=== PATIENT | female | born 1955 | race Caucasian/White ===

== ENCOUNTER 2017-02-12 13:22 | Inpatient (IN) | payer OTHER ==
[~2017-02-12] VITALS: Ht 152.4 cm; Wt 52.2 kg
--- NOTE | 2017-02-12 13:42 | NUR ---
AAOX3, CAME TO ER WITH MULTIPLE COMPLAINTS; "I WANNA TALK ABOUT EVERYTHING GOING ON WITH ME, I HAVE SEIZURES, DIZZY, I WANT MY HEART CHECKED AND MORE" RESP IS EVEN AND UNLABORED WITH NAD NOTED. SKIN IS WARM AND NON DIAPHORETIC. AWAITING MD FOR EVAL.
[2017-02-12] MEDS ORDERED: IV NS 0.9% 1,000 ML BAG IV ONE (15:00)
[2017-02-12] MEDS ORDERED: ONDANSETRON HCL/PF 4 MG/2 ML VIAL IV ONE (15:00)
[2017-02-12] MEDS ORDERED: MORPHINE SULFATE INJ 2 MG/ML DISP.SYRIN IV ONE (15:00)
[2017-02-12] MEDS ORDERED: IV NS 0.9% 1,000 ML ONE (15:18)
[2017-02-12] MEDS ORDERED: IV SET PRIMARY 1 EA INFUS.SET MC ONE (15:18)
[2017-02-12 15:19] LABS: BASOPHILS % (AUTO) 0.8 % (0.0-2.0); EOSINOPHILS # (AUTO) 0.1 /CMM (0.0-0.7); EOSINOPHILS % (AUTO) 2.6 % (0.0-6.0); HEMATOCRIT 45 % (33-45); HEMOGLOBIN 14.9 g/dL (11.5-14.8); LYMPHOCYTES # (AUTO) 1.1 /CMM (0.8-4.8); LYMPHOCYTES % (AUTO) 19.7 % (20.0-44.0); MEAN CORPUSCULAR HEMOGLOBIN 28 PG (26.0-33.0); MEAN CORPUSCULAR HGB CONC 33 g/dl (31.0-36.0); MEAN CORPUSCULAR VOLUME 83 fL (82-100); MONOCYTES # (AUTO) 0.3 /CMM (0.1-1.30); MONOCYTES % (AUTO) 4.8 % (2.0-12.0); NEUTROPHILS % (AUTO) 72.1 % (43.0-81.0); PLATELET COUNT (AUTO) 321 /CMM (150-450); RDW COEFFICIENT OF VARIATION 13.8 (11.5-15.0); RED BLOOD CELL COUNT(AUTO) 5.38 MIL/uL (4.0-5.2); WHITE BLOOD COUNT (AUTO) 5.5 K/uL (4.3-11.0)
--- NOTE | 2017-02-12 15:19 | NUR ---
PT REFUSING CT BRAIN. PT STATES SHE IS CLAUSTROPHOBIC. SHE SAYS IF SHE CHANGES HER MIND SHE WILL LET US KNOW.
[2017-02-12 15:21] LABS: APPEARANCE,URINE Clear (CLEAR); BILIRUBIN,URINE Negative (NEGATIVE); BLOOD, URINE Negative Ery/uL (NEGATIVE); COLOR,URINE Yellow (YELLOW); KETONES,URINE Negative (NEGATIVE); LEUKOCYTE ESTERASE ,URINE Negative (NEGATIVE); NITRITE, URINE Negative (NEGATIVE); PH,URINE 7.5 (5.0-8.0); PROTEIN,URINE Negative (NEGATIVE); UGLUCOSE Negative (NEGATIVE); UROBILINOGEN,URINE 0.2 EU/dL (0.2)
--- NOTE | 2017-02-12 15:26 | NUR ---
PATIENT REFUSED MORPHINE AND CT SCAN, ER MADE AWARE.
[2017-02-12 15:31] LABS: CALCIUM, SERUM 9.5 mg/dL (8.5-10.1); CREATININE 0.9 mg/dL (0.6-1.3)
[2017-02-12 15:33] LABS: INR 0.95 (0.87-1.13); PROTHROMBIN TIME 9.9 SECS (9.5-12.7)
[2017-02-12 15:37] LABS: ALBUMIN 4.2 g/dL (3.4-5.0); BILIRUBIN,TOTAL 0.4 mg/dL (0.2-1.0); TOTAL PROTEIN, SERUM 8.2 g/dL (6.4-8.2)
--- NOTE | 2017-02-12 16:02 | NUR ---
PAGED DR YUN
--- NOTE | 2017-02-12 16:20 | NUR ---
DR FRANCO AT FOR EVAL.
[2017-02-12] MEDS ORDERED: LEVE250T2 PO (16:27)
[2017-02-12] MEDS ORDERED: LEVO125T PO (16:27)
[2017-02-12] MEDS ORDERED: ACET-73 PO (16:27)
[2017-02-12] MEDS ORDERED: OXCA600T5 PO (16:27)
[2017-02-12] MEDS ORDERED: PANT40TA2 PO (16:27)
[2017-02-12] MEDS ORDERED: ATOR20TA PO (16:27)
[2017-02-12] MEDS ORDERED: IV NS 0.9% 1,000 ML IV PRN (16:29)
[2017-02-12] MEDS ORDERED: MAG HYDROX/AL HYDROX/SIMETH 30 ML UDC PO PRN (16:30)
[2017-02-12] MEDS ORDERED: Z GUARD REMEDY 2 OZ OINT TP PRN (16:30)
[2017-02-12] MEDS ORDERED: ZOLPIDEM TARTRATE 5 MG TABLET PO PRN (16:30)
[2017-02-12] MEDS ORDERED: ACETAMINOPHEN 325 MG TABLET PO PRN (16:30)
[2017-02-12] MEDS ORDERED: ONDANSETRON HCL/PF 4 MG/2 ML VIAL IVP PRN (16:30)
[2017-02-12] MEDS ORDERED: MAGNESIUM HYDROXIDE 30 ML UDC PO PRN (16:30)
[2017-02-12] MEDS ORDERED: HYDROCODONE/APAP 5/325MG 1 EACH TABLET PO PRN (16:30)
--- NOTE | 2017-02-12 16:35 | NUR ---
REPORT GIVEN TO VIRGIL HARTLEY RN FOR ADRIANA TELE [phone]
[2017-02-12 17:00] VITALS: BP 137/82
[2017-02-12] MEDS ORDERED: ENOXAPARIN SODIUM 40 MG/0.4 ML DISP.SYRIN SQ SCH (17:00)
--- NOTE | 2017-02-12 17:00 | NUR ---
RN OPENING NOTES PT WAS BROUGHT UP TO UNIT FROM THE ER VIA GURNEY IN STABLE CONDITION. SHE WAS TRANSFERRED TO THE BED SAFELY. A/OX4. NO SOB OR DISTRESS NOTED. BREATHING IS EVEN AND UNLABORED. NO PAIN EXPRESSED AT THIS TIME. IV ON R HAND 20G INTACT AND PATENT. NO INFILTRATION OR REDNESS. WILL CARRY OUT ORDERS AND CONTINUE TO MONITOR.
--- NOTE | 2017-02-12 17:00 | NUR ---
PT. REFUSED LOVENOX BECAUSE SHE FEARED THE REACTION BEFORE HAVING HER DINNER. MEDICATION EDUCATION WAS REINFORCED
--- NOTE | 2017-02-12 18:35 | NUR ---
MS RN CLOSING NOTES PT. IN STABLE CONDITION. NO SOB OR SIGNS OF DISTRESS. ALL ORDERS AND PT NEEDS CARRIED OUT THROUGHOUT SHIFT. BED IN LOW LOCKED POSITION, DEYSI RAILS UP X2, CALL LIGHT WITHIN REACH. WILL ENDORSE TO TELECOMMUNICATIONS CLERK NURSE FOR ADRIANA.
--- NOTE | 2017-02-12 19:20 | NUR ---
TELE/FITNESS TEACHER; RECEIVED PT. IN BED SITTING POSITION. DENIES CHEST PAIN. BREATHING NON LABORED AND EVEN. HL ON RH INTACT AND PATENT. WITH TELEMETRY ON. PT INSTRUCTED ON NPO AFTER MIDNIGHT FOR STRESS TEST TOMORROW. BED ON LOWER POSITION AND LOCKED FOR SAFETY. SIDE RAILS UPPER PART OF BED UP FOR SAFETY. PT HAS BEEN INSTRUCTED TO CALL FOR HELP. CONTINUE TO MONITOR CALL LIGHT WITHIN REACH.
[2017-02-12] MEDS ORDERED: IV SET PRIMARY PUMP SET 1 EA INFUS.SET MC ONE (19:48)
[2017-02-12 20:00] VITALS: BP 102/67
[2017-02-12] MEDS: OXCARBAZEPINE 150 MG TABLET PO SCH (21:06)
[2017-02-12] MEDS ORDERED: ATORVASTATIN 10 MG TABLET PO SCH (22:00)
--- NOTE | 2017-02-12 23:25 | NUR ---
TELE/SOLE POLISHER; C/O HEADACHE AND PAIN RT THUMP AND ASKED FOR TYLENOL. SO TYLENOL 650 MG PO Q6 PRN GIVEN ORDERED. WILL MONITOR.
[2017-02-13] VITALS: BP 106/69
[2017-02-13 06:12] LABS: BASOPHILS % (AUTO) 0.7 % (0.0-2.0); EOSINOPHILS # (AUTO) 0.2 /CMM (0.0-0.7); EOSINOPHILS % (AUTO) 4.5 % (0.0-6.0); HEMATOCRIT 36 % (33-45); HEMOGLOBIN 11.9 g/dL (11.5-14.8); LYMPHOCYTES # (AUTO) 1.6 /CMM (0.8-4.8); LYMPHOCYTES % (AUTO) 34.9 % (20.0-44.0); MEAN CORPUSCULAR HEMOGLOBIN 28 PG (26.0-33.0); MEAN CORPUSCULAR HGB CONC 33 g/dl (31.0-36.0); MEAN CORPUSCULAR VOLUME 84 fL (82-100); MONOCYTES # (AUTO) 0.5 /CMM (0.1-1.30); MONOCYTES % (AUTO) 9.8 % (2.0-12.0); NEUTROPHILS # (AUTO) 2.3 /CMM (1.8-8.9); NEUTROPHILS % (AUTO) 50.1 % (43.0-81.0); PLATELET COUNT (AUTO) 281 /CMM (150-450); RDW COEFFICIENT OF VARIATION 14.3 (11.5-15.0); RED BLOOD CELL COUNT(AUTO) 4.26 MIL/uL (4.0-5.2); WHITE BLOOD COUNT (AUTO) 4.6 K/uL (4.3-11.0)
--- NOTE | 2017-02-13 06:30 | NUR ---
TELE/CREDIT UNION FIELD EXAMINER; PT. ON SB 50. SLEPT FAIRLY. DENIES CHEST PAIN. PT SAID SLIGHT NAUSEOUS OFFERED PRN PT REFUSED. REMAINED ON NPO AND PT MUCH AWARE OF IT. VOIDING, NO BM. CONTINUE TO MONITOR. CALL LIGHT WITHIN REACH. WILL ENDORSE TO THE DAY SHIFT NURSE FOR CONTINUITY OF CARE.
[2017-02-13 07:03] LABS: CALCIUM, SERUM 8.3 mg/dL (8.5-10.1); CREATININE 0.8 mg/dL (0.6-1.3); MAGNESIUM 1.7 mg/dL (1.8-2.4); PHOSPHORUS 3.9 mg/dL (2.5-4.9); POTASSIUM 3.7 mmol/L (3.5-5.1)
[2017-02-13] MEDS ORDERED: PANTOPRAZOLE 40 MG TABLET.DR PO SCH ×2 (07:30)
[2017-02-13] MEDS ORDERED: LEVOTHYROXINE SODIUM 125 MCG TABLET PO SCH (07:30)
--- NOTE | 2017-02-13 07:35 | NUR ---
CAFETERIA CLERK OPENING NOTES PT. IN STABLE CONDITION. NO SOB OR SIGNS OF DISTRESS. DENIES ANY CHEST PAIN. NPO STATUS MAINTAINED FOR NUCLEAR STRESS TEST. IV HL ON RIGHT HAND 20G PATENT AND INTACT. NO RDNESS OR INFILTRATION. WILL CONTINUE TO MONITOR
[2017-02-13 08:00] VITALS: BP 118/57
[2017-02-13 08:10] VITALS: BP 118/59
--- NOTE | 2017-02-13 08:12 | NUR ---
WOUND CARE CONSULT: PATIENT SEEN AND SKIN ASSESSMENT DONE. PATIENT ALERT, ORIENTED, AMBULATORY, INDEPENDENT WITH BED MOBILITY, NAOMI 19, CONTINENT. SEE TODAY' SKIN ASSESSMENT ALONG WITH RECOMMENDATIONS DISCUSSED WITH NURSING STAFF. IN AGREEMENT WITH PLAN OF CARE. Addendum: 02/13/17 at 0818 by ROMMEL TITUS [id number] Amended: Links added.
--- NOTE | 2017-02-13 08:53 | NUR ---
COKE WORKER NOTES PT. WAS WHEELED OFF UNIT BY YAYO FOR NUCLEAR STRESS TEST
[2017-02-13] MEDS ORDERED: ENOXAPARIN SODIUM 40 MG/0.4 ML DISP.SYRIN SQ SCH (09:00)
[2017-02-13] MEDS ORDERED: ASPIRIN 81 MG TAB.CHEW PO SCH (09:00)
[2017-02-13] MEDS ORDERED: LEVETIRACETAM (250 MG) 250 MG TABLET PO SCH (09:00)
--- NOTE | 2017-02-13 09:17 | NUR ---
DIE CAST PATTERNMAKER NOTES PT. EXPRESSED THAT SHE REFUSED THE STRESS TEST DUE TO CLAUSTROPHOBIA. WAS SEEN BY DR FRANCO SHORTLY AFTER WHO THEN CLEARED HER FOR DISCHARGE
[2017-02-13] MEDS: OXCARBAZEPINE 150 MG TABLET PO SCH (09:59)
[2017-02-13] MEDS ORDERED: MAGNESIUM OXIDE 400 MG TABLET PO ONE (11:00)
--- NOTE | 2017-02-13 11:00 | NUR ---
PT. REFUSED 11AM MAGNESIUM AND STATED THE SHE WILL FOLLOW UP WITH HER PRIMARY IN REGARDS TO TAKING A DAILY MULTI VITAMIN AND DOING FURTHER BLOOD WORK TO CHECK HER ELECTROLYTE LEVELS. MEDICATION EDUCATION WAS PROVIDED TO PATIENT.
--- NOTE | 2017-02-13 14:35 | NUR ---
ELIANA LEIGH NOTES PT. WAS ACCOMPANIED OFF THE UNIT BY BENNETT IN STABLE CONDITION. ALL ORDERS AND PT. NEEDS CARRIED OUT THROUGHOUT SHIFT. PT. LEFT HOSPITAL VIA TAXI.
== END 2017-02-13 14:45 | disposition home or self-care (01) | DRG 203 ==
LOC: ER 13:23 → TELE 16:28 → MED 02-13 08:13
PROVIDERS: ADMIT Internal Medicine; ATTEND Internal Medicine
DX: M94.0 Chondrocostal junction syndrome [Tietze] (principal); E87.1 Hypo-osmolality and hyponatremia; R07.9 Chest pain, unspecified; F41.9 Anxiety disorder, unspecified; G40.909 Epilepsy, unspecified, not intractable, without status epilepticus; M19.90 Unspecified osteoarthritis, unspecified site
CPT/HCPCS: 36415; 71010-TC; 80048-TC; 80053-TC; 80061-TC; 81000-TC; 83735-TC; 84100-TC; 84484-TC; 85025-TC; 85730-TC; 87081-TC; 93307-TC; A4606; J1650; J7030; Z7610